=== PATIENT | male | born 1990 | race American Indian/Alaskan Native ===

== ENCOUNTER 2017-03-02 14:39 | Emergency (ER) | payer SELFPAY ==
--- NOTE | 2017-03-02 15:39 | XRay Report ---
LEFT ANKLE RADIOGRAPHS INDICATION: Left ankle injury. COMPARISON: 06/30/2009. FINDINGS: AP and lateral left ankle radiographs demonstrate interval healed left distal fibular shaft deformity. Intact ankle mortise, malleoli and talar dome contour. Mild diffuse lower leg/ankle ankle soft tissue swelling though not excluded, greatest anteriorly. CONCLUSION: Left ankle soft tissue swelling not excluded with interval healing of left lower fibular shaft fracture, as described. Please correlate. Thank you for the opportunity to participate in this patient's care.
[2017-03-02 16:55] VITALS: BP 127/82
--- NOTE | 2017-03-02 17:30 | Emergency Department Report ---
HPI - General Chief Complaint: Extremity Injury, Lower Time Seen by Provider: 03/02/17 17:20 - HPI HPI: Patient is a 26-year-old male presents to ED complaining of right ankle pain 2 days. Patient states he was at work when he accidentally hit a pallet and twisted his ankle. Patient states since then he has not been able to apply pressure to the foot. He denies any deformity. Patient states since then he had noticed a little bit of swelling around the ankle. ED Past Medical Hx - Past Medical History Previous Medical History?: No - Surgical History Past Surgical History?: No - Social History Smoking Status: Current Every Day Smoker Substance Use Type: Alcohol, Non Opiate Pain - Medications Home Medications: Home Medications Medication Instructions Recorded Confirmed Last Taken Type Cyclobenzaprine [Flexeril] 10 mg PO QHS PRN #30 tablet 03/02/17 Unknown Rx Naproxen [Naprosyn] 500 mg PO BID #30 tablet 03/02/17 Unknown Rx ED Review of Systems ROS: Stated complaint: LEFT FOOT INJURY Other details as noted in HPI Constitutional: denies: chills, fever Eyes: denies: eye pain, eye discharge, vision change ENT: denies: ear pain, throat pain Respiratory: denies: cough, shortness of breath, wheezing Cardiovascular: denies: chest pain, palpitations Endocrine: no symptoms reported Gastrointestinal: denies: abdominal pain, nausea, vomiting, diarrhea, constipation Genitourinary: denies: urgency, dysuria Musculoskeletal: denies: back pain, joint swelling, arthralgia Skin: denies: rash, lesions Neurological: denies: headache, weakness, paresthesias Psychiatric: denies: anxiety, depression Hematological/Lymphatic: denies: easy bleeding, easy bruising Physical Exam - Physical Exam Vital Signs: Vital Signs 03/02/17 03/02/17 14:53 16:54 Temperature 98.6 F Pulse Rate 67 72 Respiratory 20 18 Rate Blood Pressure 152/98 Blood Pressure 127/82 [Left] O2 Sat by Pulse 100 100 Oximetry Physical Exam: GENERAL: Alert and oriented x3, no apparent distress, Normal Gait, atraumatic. HEAD: Head is normocephalic and a-traumatic. LUNGS: Symetrical with respiration, No wheezing, no rales or crackles, CTAB. HEART: S1, S2 present, regular rate and rhythm without murmur, no rubs, no gallops. Non tender to palpation EXTREMITIES/MUSCULOSKELETAL: No cyanosis, clubbing, rash, edema. Full ROM on all the other joints. Pedal Pulses 2+ bilaterally. LE 5+ strength bilaterally , full range of motion of the right ankle, non-erythematous, mildly swollen, mildly tender to palpation. NEUROLOGIC: The patient is cooperative with no focal neurologic deficits. Normal speech. Normal sensation in bilateral upper and lower extremities, No loss of sensation, PSYCHIATRIC: Mood is congruent with affect, denies suicidal or homicidal ideations. SKIN: Warm and dry, No lesions, No ulceration or induration present. ED Course Vital Signs 03/02/17 03/02/17 14:53 16:54 Temperature 98.6 F Pulse Rate 67 72 Respiratory 20 18 Rate Blood Pressure 152/98 Blood Pressure 127/82 [Left] O2 Sat by Pulse 100 100 Oximetry ED Medical Decision Making - Radiology Data Radiology results: report reviewed Old fracture seen. Soft tissue swelling around the ankle. - Medical Decision Making 36-year-old male presents with right ankle strain/sprain ED course:. Vital signs are normal patient is in no acute distress Discussed with patient follow-up with primary care physician. Discussed the patient and take medications as prescribed. Discussed the patient to keep ice compression" 3 times a day. Patient has no neurological deficit. Patient is alert and oriented 3 and understands all instructions given. Discussed drowsiness effect of Flexeril makes her drowsy and not to operate machinery while taking flexeril. Patient had crutches that he has been using which she got almost a year ago when he fractured his tibia. Critical care attestation.: If time is entered above; I have spent that time in minutes in the direct care of this critically ill patient, excluding procedure time. ED Disposition Clinical Impression: Right ankle sprain Qualifiers: Encounter type: initial encounter Involved ligament of ankle: other ligament Qualified Code(s): S93.491A - Sprain of other ligament of right ankle, initial encounter Disposition: TO HOME OR SELFCARE Is pt being admited?: No Does the pt Need Aspirin: No Condition: Stable Instructions: Ankle Sprain (ED), Arthralgia (ED), Ankle Exercises (GEN) Prescriptions: Cyclobenzaprine [Flexeril] 10 mg PO QHS PRN #30 tablet PRN Reason: Muscle Spasm Naproxen [Naprosyn] 500 mg PO BID #30 tablet Referrals: PRIMARY CARE, [Primary Care Provider] - 3-5 Days [facility] [Outside] - 3-5 Days [facility] [Outside] - 3-5 Days [facility] [Outside] - 3-5 Days Forms: Work/School Release Form(ED) Time of Disposition: 17:55
== END 2017-03-02 18:00 | disposition home or self-care (01) ==
LOC: ED 14:39
DX: S93.491A Sprain of other ligament of right ankle, initial encounter (principal); F17.200 Nicotine dependence, unspecified, uncomplicated; X50.1XXA Overexertion from prolonged static or awkward postures, initial encounter; Y93.89 Activity, other specified; Y92.89 Other specified places as the place of occurrence of the external cause; Y99.8 Other external cause status
CPT/HCPCS: 99283